=== PATIENT | male | born 1960 | race Caucasian/White ===

== ENCOUNTER 2017-12-31 16:46 | Emergency (ER) | payer SELFPAY ==
--- NOTE | 2017-12-31 19:49 | ER ---
Nurse's Notes [facility] Name: Jonnathan Gallagher Age: 57 yrs Sex: Male : 1960 Arrival Date: 12/31/2017 Time: 16:48 Bed Waiting Private MD: Jarvis Waldrop Diagnosis: Presentation: 12/31 16:50 Presenting complaint: Patient states: "I feel dizzy and SOB and my blood pressure was sv 77/56 HR 110, I feel very fatigued." Reports BS was 176 this morning. Pt reports that he was at a storage unit earlier and kept getting SOB and dizzy. Transition of care: patient was not received from another setting of care. Onset of symptoms was December 31, 2017. Care prior to arrival: None. 16:50 Method Of Arrival: Ambulatory sv 16:50 Acuity: LIANNE 3 sv 16:56 Risk Assessment: Do you want to hurt yourself or someone else? Patient reports no sv desire to harm self or others. Initial Sepsis Screen: Does the patient meet any 2 criteria? No. Patient's initial sepsis screen is negative. Does the patient have a suspected source of infection? No. Patient's initial sepsis screen is negative. Triage Assessment: 16:59 General: Appears in no apparent distress. uncomfortable, Behavior is calm, cooperative, sv appropriate for age. Pain: Denies pain. Neuro: Level of Consciousness is awake, alert, obeys commands, Oriented to person, place, time, situation, Moves all extremities. Full function Gait is steady. Respiratory: Reports shortness of breath on exertion Respiratory effort is even, unlabored, Respiratory pattern is regular, symmetrical, Onset: The symptoms/episode began/occurred this morning, the patient has mild shortness of breath. Derm: Skin is normal. Historical: - Allergies: 16:54 Codeine; sv - Home Meds: 16:54 aspirin 81 mg Oral TbEC 1 tab once daily [Active]; gabapentin 300 mg oral cap daily sv [Active]; fenofibrate 160 mg oral tab 1 tab once daily [Active]; Humulin 70/30 100 unit/mL (70-30) Sub-Q susp 60 unit twice a day [Active]; benazepril oral oral [Active]; pravastatin 20 mg Oral tab 1 tab once daily [Active]; Victoza 2-Aryan subcutaneous subcutaneous [Active]; Protonix Oral [Active]; - PMHx: 16:54 Diabetes - IDDM; Hypertension; sv - Immunization history:: Adult Immunizations up to date. - Social history:: Smoking status: Patient/guardian denies using tobacco. - Ebola Screening: : No symptoms or risks identified at this time. Vital Signs: 16:54 BP 125 / 76 RA Sitting (auto/reg); Pulse 106; Resp 18; Temp 98.9(TE); Pulse Ox 97% on sv R/A; Weight 86.18 kg (R); Height 5 ft. 7 in. (170.18 cm) (R); Pain 0/10; 16:54 Body Mass Index 29.76 (86.18 kg, 170.18 cm) sv ED Course: 16:48 Patient arrived in ED. mr 16:49 Jarvis Waldrop MD is Private Physician. mr 16:51 Triage completed. sv 16:54 Arm band placed on right wrist. sv 16:59 Patient placed in waiting room, Patient notified of wait time. sv 19:47 Patient's name was called from ER lobby. No response. lp1 Administered Medications: No medications were administered Point of Care Testing: Blood Glucose: 16:58 Blood Glucose: 270 mg/dL; sv Ranges: Outcome: 19:47 Eloped from waiting room, before seeing physician Time discovered patient gone: December 31, lp1 2018 at 19:48 19:48 Patient left the ED. lp1 Signatures: Elizabeth Steele RN RN Yaz Bauer mr Vale Jim RN RN lp1 Corrections: (The following items were deleted from the chart) 16:52 16:50 Presenting complaint: Patient states: "I feel dizzy and SOB and my blood pressure sv was 77/56 HR 110, I feel very fatigued." sv 16:57 16:50 Presenting complaint: Patient states: "I feel dizzy and SOB and my blood pressure sv was 77/56 HR 110, I feel very fatigued." Reports BS was 176 this morning. sv
== END 2017-12-31 19:48 | disposition left against medical advice (07) ==
LOC: ER 16:46
DX: Z53.21 Procedure and treatment not carried out due to patient leaving prior to being seen by health care provider (principal)
CPT/HCPCS: 82962; 99281